=== PATIENT | female | born 1965 | race Caucasian/White ===

== ENCOUNTER → 2016-05-03 | Outpatient (CLI) | payer OTHER ==
--- NOTE | 2016-05-03 10:47 | MA ---
Screening Digital Mammogram With iCAD Analysis Clinical Indications: Routine screening. Technique: Standard cephalocaudal and mediolateral oblique projections were obtained. This examinatio n was processed by the iCAD computer aided detection system. Comparison: April 2015, April 2014, April 2013, April 2012, April 2011, April 2010, 2008. Breast density: Type C; Heterogeneously dense. Findings: CAD was reviewed. There is a more prominent nodular asymmetry in the upper left breast, pro bably in the outer breast. No spiculated masses, suspicious calcifications or other signs of maligna ncy are identified. There has been no significant change in the appearance of either breast. Impression: Left breast asymmetry requires further evaluation, BI-RADS 0 Recommendation: Targeted left breast ultrasound with additional mammographic evaluation if considered indicated by the interpreting radiologist. [facility] will send a result letter to the patient. Dense breast parenchyma diminishes mammographic sensitivity. Negative mammography should not preclude additional workup of a clinically suspicious finding. The patient's information is entered into a reminder system with a target due date for her next mammo gram.
== END ==
LOC: BMCIMAGING 08:18
DX: Z12.31 Encounter for screening mammogram for malignant neoplasm of breast (principal); R92.8 Other abnormal and inconclusive findings on diagnostic imaging of breast
CPT/HCPCS: G0202

== ENCOUNTER → 2016-05-24 | Outpatient (CLI) | payer OTHER ==
--- NOTE | 2016-05-24 14:26 | US ---
Ultrasound Left Breast History: Nodular density upper-outer left breast on mammogram. Comparison: Multiple prior mammograms most recent from May 03, 2016. Technique: Ultrasound imaging of the upper-outer quadrant of the left breast from the 12 to the 3 o'c lock position was performed by the robot programmer and me. Findings: In the upper-outer quadrant of the left breast, there are multiple simple cysts. The larges t measures 2 x 2 x 1.2 cm at the 2 o'clock position 5 cm from the nipple, which corresponds to the ma mmogram finding. Multiple additional smaller cysts and cluster of cysts in the upper-outer quadrant o f the left breast. In the left breast periareolar region 3 o'clock position 1 cm from the nipple, the re is a slightly complex cyst measuring 7 x 5 x 4 mm, which has a duct extending into this cyst with a few internal echoes, but positive acoustic enhancement and smooth well-defined wilson. No evidence o f vascular flow or vascular mural nodule. This is likely benign, however, short-term follow-up ultras ound in 6 months is recommended. Impression: 1. BI-RADS 3: Probably benign findings. 2. Multiple simple cysts upper-outer quadrant left breast with a 2-cm simple cyst corresponding to th e mammogram finding. 3. A 7 x 5 x 4 mm slightly complex cyst with internal echoes and duct extending to this cyst, probabl y representing a benign slightly complex cyst with internal debris. Short-term follow-up ultrasound i s recommended. 4. Short term follow-up left breast ultrasound in 6 months. 5. Recommend annual mammograms, with the next bilateral mammogram in April 2017. Findings and recommendations have been discussed with the patient who agrees with the plan.
== END ==
LOC: BMCIMAGING 12:27
DX: N60.12 Diffuse cystic mastopathy of left breast (principal)

== ENCOUNTER → 2016-11-26 | Outpatient (CLI) | payer OTHER | LOC: BMCIMAGING 10:13 | PROVIDERS: ATTEND Obstetrics & Gynecology | DX: Z12.39 Encounter for other screening for malignant neoplasm of breast (principal); N63 Unspecified lump in breast ==

== ENCOUNTER → 2016-12-08 | Outpatient (CLI) | payer OTHER ==
[~2016-12-08] MED LIST: BUPIVACAINE 0.5% 10 ML SDV ONE; LIDO/EPI 1% **Not for Epidural 20 ML MDV ONE; LIDOCAINE 1% 300 MG/30 ML SDV ONE; THROMBIN (BOVINE) 5,000 UNIT VIAL TP ONE
== END ==
LOC: FIMAGING 07:08
PROVIDERS: ATTEND Obstetrics & Gynecology
PROC: 0HBU3ZX Excision of Left Breast, Percutaneous Approach, Diagnostic (ICD-10-PCS; principal; 2016-12-08)
PROC: BH41ZZZ Ultrasonography of Left Breast (ICD-10-PCS; principal; 2016-12-08)
DX: N63 Unspecified lump in breast (principal)

== ENCOUNTER → 2016-12-15 | Outpatient (CLI) | payer OTHER | LOC: FIMAGING 10:25 | PROVIDERS: ATTEND Obstetrics & Gynecology | DX: N60.02 Solitary cyst of left breast (principal); Z98.890 Other specified postprocedural states ==

== ENCOUNTER → 2017-05-10 | Outpatient (CLI) | payer OTHER | LOC: FIMAGING 08:00 | PROVIDERS: ATTEND Obstetrics & Gynecology | DX: Z12.31 Encounter for screening mammogram for malignant neoplasm of breast (principal) ==

== ENCOUNTER → 2018-04-26 | Outpatient (CLI) | payer OTHER | LOC: FIMAGING 14:50 | PROVIDERS: ATTEND Obstetrics & Gynecology | DX: N60.01 Solitary cyst of right breast (principal) ==

== ENCOUNTER 2018-09-06 | Emergency (ER) | payer OTHER | END 2018-09-06 02:05 | disposition home or self-care (01) ==

== ENCOUNTER → 2018-09-26 | Outpatient (CLI) | payer OTHER | LOC: FIMAGING 08:24 ==